=== PATIENT | female | born 1990 | race Caucasian/White ===

== ENCOUNTER 2018-04-20 16:24 | Emergency (ER) | payer MEDICAID ==
[~2018-04-20] VITALS: Ht 172.7 cm; Wt 73.5 kg
[2018-04-20 17:06] VITALS: BP 149/91
== END 2018-04-20 18:29 | disposition home or self-care (01) ==
LOC: ER 16:26
DX: R51 Headache (principal); Q35.7 Cleft uvula
CPT/HCPCS: 99281